=== PATIENT | female | born 1985 | race African-American/Black ===

== ENCOUNTER 2016-06-04 20:33 | Emergency (ER) | payer OTHER ==
--- NOTE | ~2016-06-04 | CT2 ---
[facility] A Service of [facility] RADIOLOGY TEXT RESULTS PATIENT: FABRICE CALDWELL LOCATION: [facility] : 85 UNIT #: [id number] AGE: [address]: Ale Parra APRN SEX: F ORDER DR: [id number] [facility]. [place], [place] [address] [id number] MR#: [id number] Acc #: [id number] NAME: FABRICE CALDWELL : 1985 SEX: F STUDY DATE/TIME: 06/04/2016 20:53 UNIT: [facility] ROOM: STUDY DESCRIPTION: CT Abd and Pelv W Cont Attending Physician: Ale Parra A.P.R.N. Ordering Physician: Ale Parra A.P.R.N. Primary Care Physician: Primary Care Physician No MEDICAL IMAGING REPORT This report is preliminary unless electronic signature is present EXAM Abdomen and pelvis CT with contrast, 06/04/2016 INDICATIONS 31-year-old female with pelvic pain since last night and right lower quadrant pain, dysuria. TECHNIQUE Contrast-enhanced abdomen and pelvis CT was performed. This CT exam was performed with one or more of the following radiation dose reduction techniques: Automatic exposure control, adjustment of mA and/or kV according to patient size, and iterative reconstruction. We have no comparisons. FINDINGS CT ABDOMEN: Included lung bases are clear, no effusion or pericardial effusion. Aorta unremarkable. Spleen, adrenal glands and pancreas are unremarkable and the gallbladder is normal. Liver unremarkable. Kidneys are unremarkable. Circumaortic left renal vein present as an anatomic variant. CT PELVIS: Bladder decompressed. There is a physiologic appearing follicle in the right ovary measuring 2.1 cm. Trace amount of free fluid in the pelvis, also in the physiologic range. No drainable fluid collection or adnexal mass. Bowel unremarkable. Appendix normal. Inguinal canals unremarkable. There is no suspicious bone lesion. IMPRESSION 1. Negative contrast-enhanced abdomen and pelvis CT. The appendix is normal. No bowel obstruction, drainable fluid collection or focal area of inflammatory change. 2. Incidental dominant follicle in the right ovary measures 2.1 cm [address]S. [facility] A Service of [facility] RADIOLOGY TEXT RESULTS PATIENT: FABRICE CALDWELL LOCATION: [facility] : 85 UNIT #: [id number] AGE: [address]: Ale Parra APRN SEX: F ORDER DR: and has physiologic characteristics. Dictated by... Kieran Montoya M.D. THIS IS AN ELECTRONICALLY VERIFIED REPORT Kieran Montoya M.D. at 06/05/2016 5:12 PM RODRIGO/adams TD: 06/05/2016 00:31 JOB #: [id number] MEDICAL IMAGING REPORT Page 1 of 1 COPY
[2016-06-04 19:44] LABS: URINE SOURCE CLEAN CATCH
[2016-06-04 19:51] LABS: URINE APPEARANCE CLEAR; URINE BILIRUBIN NEG (NEG); URINE BLOOD NEG (NEG); URINE COLOR YELLOW; URINE GLUCOSE NEG (NEG); URINE KETONE TRACE (NEG); URINE LEUKOCYTE ESTERASE NEG (NEG); URINE NITRATE NEG (NEG); URINE PH 6.5 (5-8); URINE PROTEIN NEG (NEG); URINE SPECIFIC GRAVITY 1.031 (1.003-1.035)
[2016-06-04 19:55] LABS: CULTURE INDICATED? NO
[2016-06-04 20:00] LABS: BASOPHIL# 0.1 X10e3 (0-0.3); BASOPHIL% 0.7 % (0-2.5); EOSINOPHIL# 0.1 X10e3 (0-0.7); HEMATOCRIT 33.5 % (35.0-45.0); HEMOGLOBIN 10.4 gm/dL (12.0-16.0); LYMPHOCYTE% 29.6 % (17.0-45.0); MEAN CELL VOLUME 67.6 FL (83-96); MEAN CORPUSCULAR HEMOGLOBIN 20.9 PG (28-34); MEAN PLATELET VOLUME 9.2 FL (6.5-11.5); MONOCYTE# 0.7 X10e3 (0-1.0); NEUTROPHIL# 6.2 X10e3 (1.5-7.1); NEUTROPHIL% 61.7 % (40-75); PLATELET COUNT 222 X10e3 (140-420); RED BLOOD COUNT 4.95 X10e (3.90-5.30); RED CELL DISTRIBUTION WIDTH 16.3 % (11.0-15.5)
[2016-06-04 20:09] LABS: DIFF IND NO
[2016-06-04 20:39] LABS: BILIRUBIN, DIRECT 0.1 mg/dL (0.0-0.2); BILIRUBIN,INDIRECT 0.2 mg/dL (0.0-0.9); BILIRUBIN,TOTAL 0.3 mg/dL (0.2-2.0); BUN/CREATININE RATIO 15.71; CALCIUM SERUM 9.1 mg/dL (8.4-10.2); CREATININE SERUM 0.7 mg/dL (0.6-1.4); GLOM FILT RATE Estimated 133.8 mL/min (>60); POTASSIUM 3.9 mmol/L (3.5-5.1); PROTEIN TOTAL SERUM 7.5 g/dL (6.0-8.3)
[2016-06-07 07:55] LABS: CHLAMYDIA TRACH Not Detected (Not Detected); N GONOR Not Detected (Not Detected)
== END 2016-06-04 22:03 | disposition home or self-care (01) ==
LOC: CFTX 20:33
PROVIDERS: Nurse Practitioner
DX: N83.01 Follicular cyst of right ovary (principal); Z98.51 Tubal ligation status
CPT/HCPCS: 36415; 74177; 80048; 80076; 81003; 84703; 85025; 87491; 87591; 87808; 87905; 96361; 96374; 99284; J1885; Q9967